=== PATIENT | female | born 1975 | race Caucasian/White ===

== ENCOUNTER → 2018-02-27 08:30 | Outpatient (CLI) | payer OTHER, SELFPAY ==
[2018-02-27 09:12] LABS: Absolute Lymphocyte Count 2.03 X10^3/ul (0.83-4.51); Absolute Neutrophil Count 2.7 X10^3/uL (2.0-7.7); Basophil# 0.03 X10^3/uL; Basophil% 0.5 % (0-1); Eosinophils% 3.4 % (0-5); Hematocrit 39.8 % (37-47); Hemoglobin 12.4 g/dl (12.0-15.0); Lymphocyte # 2.03 X10^3/ul (4.0); Lymphocyte % 34.8 % (19-41); Mean Corp Hgb Conc 31.2 g/gl (32-36); Mean Corpuscular Hgb 25.9 pg (27.0-32.0); Mean Corpuscular Volume 83.1 fL (81-99); Mean Platelet Vol. 10.8 fl (6.2-12.0); Monocyte# 0.84 X10^3/uL; Monocyte% 14.4 % (0-10); Neutrophil # 2.73 X10^3/uL (2.7-7.7); Neutrophil % 46.7 % (47-70); Platelet Count 253 K/mm3 (150-450); RBC Distribution Width CV 15.9 % (11.6-14.6); RBC Distribution Width SD 47.3 fl (35.1-43.9); Red Blood Count 4.79 M/mm3 (4.2-5.4); White Blood Count 5.8 K/mm3 (4.4-11.0)
[2018-02-27 09:14] LABS: POSITIVE COUNT NO; POSITIVE DIFFERENTIAL NO; POSITIVE MORPHOLOGY NO
[2018-02-27 09:37] LABS: ALB/GLOB Ratio 1.1 RATIO (0.9-2.4); AST(SGOT) 13 U/L (15-37); Alanine Aminotransfer ALT/SGPT 15 U/L (13-56); Alkaline Phosphatase 65 U/L (45-117); Anion Gap 6 (5-15); BUN 12 mg/dL (7-18); BUN/Creat Ratio 11.8 RATIO (10-20); Calcium,Total 9.4 mg/dL (8.5-10.1); Chloride 106 mmol/L (98-107); Cholesterol 165 mg/dL (200); Creatinine, Serum 1.02 mg/dL (0.55-1.02); EST Glomerular Filtration Rate 63 mL/min (>60); Est Glom Filt Rate - Afr Amer 76 mL/min (>60); Globulin 3.7 g/dL (2.2-4.2); Glucose 90 mg/dL (74-106); High Density Lipoprotein 56 mg/dL; Potassium 3.9 mmol/L (3.5-5.1); Protein, Total 7.7 g/dL (6.4-8.2); Sodium Level 140 mmol/L (136-145); Triglycerides 104 mg/dL; Very Low Density Lipoprotein 21 mg/dL (5-40)
== END ==
PROVIDERS: Family Provider Family Medicine; PCP Family Medicine; Visit Provider Family Medicine
DX: Z00.00 Encounter for general adult medical examination without abnormal findings (principal)
CPT/HCPCS: 36415; 80053; 80061; 85025

== ENCOUNTER → 2019-03-29 16:39 | Outpatient (CLI) | payer OTHER, SELFPAY ==
--- NOTE | 2019-03-29 16:42 | RAD_ITS ---
STUDY: X-RAY - RIGHT KNEE REASON FOR EXAM: Female, 43 years old. Worsening medial knee pain. No history of injury. TECHNIQUE: 4 view(s) of the knee. COMPARISON: None. FINDINGS: Normal visualized distal femur. Normal visualized proximal tibia and fibula. Normal proximal tibiofibular articulation. Normal medial femorotibial compartment. Normal lateral femorotibial compartment. Normal patellofemoral articulation. The soft tissue structures are unremarkable. RAD/Knee 4 or More Views IMPRESSION: Normal x-ray examination of the knee. Electronically Signed: Nav Leyav, at 13:40 EDT , Service support ,
== END ==
PROVIDERS: Family Provider Family Medicine; PCP Family Medicine; Referring Provider Family Medicine; Visit Provider Family Medicine
DX: M25.561 Pain in right knee (principal)
CPT/HCPCS: 73564

== ENCOUNTER → 2019-04-20 16:14 | Outpatient (CLI) | payer OTHER, SELFPAY ==
--- NOTE | 2019-04-20 16:45 | MRI_ITS ---
STUDY: MRI RIGHT KNEE REASON FOR EXAM: Female, 43 years old. Chronic medial knee pain. TECHNIQUE: Standardized fat and water weighted pulse sequences were obtained in all 3 orthogonal planes. COMPARISON: X-ray 03/29/2019. FINDINGS: 6 cm complex tear of the posterior body of the medial meniscus extending to the superior and inferior articular surfaces. Normal hyaline cartilage of the medial femorotibial compartment. Normal medial femoral condyle and tibial plateau. Normal medial collateral ligamentous complex (MCL). Normal distal semimembranosus, gracilis and semitendinosus tendons. Normal lateral meniscus. Normal hyaline cartilage of the lateral femorotibial compartment. Normal lateral femoral condyle and tibial plateau. Normal proximal tibiofibular articulation. Normal lateral collateral (fibular) ligament. Normal popliteus tendon. Normal biceps femoris tendon. Trace edema in the distal anterior cruciate ligament, suspicious for sprain. There is no high-grade tear. Normal posterior cruciate ligament (PCL). Normal congruent patellofemoral articulation. Normal hyaline cartilage of the patellofemoral compartment. Normal medial and lateral patellar retinaculum. Normal quadriceps tendon. Normal patellar tendon. Normal Hoffa's fat pad. Small joint effusion with gastrocnemius-semimembranosus bursal prolapse. The soft tissues are unremarkable. The otherwise visualized osseous structures are unremarkable. MRI/Lower Ext Joint Only (Routine) IMPRESSION: 1. Medial meniscal tear. 2. ACL sprain. 3. Small joint effusion. Electronically Signed: Malia Valera MD at 18:12 EDT Tel , Service support ,
== END ==
PROVIDERS: Family Provider Family Medicine; PCP Family Medicine; Referring Provider Family Medicine; Visit Provider Family Medicine
DX: M25.561 Pain in right knee (principal)
CPT/HCPCS: 73721

== ENCOUNTER 2019-05-23 10:14 | Day surgery (SDC) | payer OTHER, SELFPAY ==
--- NOTE | 2019-05-03 03:19 | HP_ITS ---
I have re-examined the patient. There are no clinical changes since date of exam. Intake Vital Signs 05/03/19 Height 5 ft 4 in 05/03/19 Weight: 157 lb 05/03/19 Body Mass Index (BMI) 26.9 Intake Visit Reasons: R. KNEE Is patient in pain?: Yes Pain scale (1-10): 4 Allergies No Known Allergies Allergy (Unverified 05/03/19 13:37) Medications acetaminophen 325 mg capsule 325 mg PO Q6H 05/03/19 [History Confirmed 05/03/19] HPI R. KNEE : Surgical H&P: Yes Details: Parts of this documentation were recorded by a scribe, this documentation accurately reflects the service provided and the decisions made by me, Natalie Catalan, DO 05/03/19 0792. HAIDER GILLILAND is a 43 year old F here today new patient for right knee pain. She states that she has had right knee pain for about 2 years. She states that she was moving boxes and her knee was sore following the event but she denies any known injury. She has pain over her medial knee, superior and posterior knee. Patient denies any popping or clicking. She feels like she has knee instability but she has not had any true giving out. Patient has increased pain with ambulation and standing for long periods of time, and lifting heavy items. She states that she has a knee brace which she wears daily. Patient notes that she had an injection about a year ago which was not helpful. She had swelling following her injection and she had shooting nerve pain into her thigh. Patient has taken an anti-inflammatory and has not had any relief. She denies any physical therapy. Patient had an MRI and xray which was helpful. ROS Const Reports system reviewed and no additional complaints, except as docu Eyes Reports system reviewed and no additional complaints, except as docu ENT Reports system reviewed and no additional complaints, except as docu Card Reports system reviewed and no additional complaints, except as docu Resp Reports system reviewed and no additional complaints, except as docu GI Reports system reviewed and no additional complaints, except as docu Reports system reviewed and no additional complaints, except as docu Musc Reports joint pain, Reports joint swelling, Reports stiffness Skin/Breast Reports system reviewed and no additional complaints, except as docu Neuro Yes system reviewed and no additional complaints, except as docu Psych Reports system reviewed and no additional complaints, except as docu Endo Reports system reviewed and no additional complaints, except as docu Ortho Exam Right Knee Homans Sign: No Examination: Yes Med jt line tenderness, No Lat jt line tenderness, Yes Rudy's Test Stability: NML: Posterior Drawer, NML: Valgus 30, NML: Varus 30, 1+: Anterior Drawer, 1+: Francesca Apprehension with Lateral Translation: No Patella Grind: No KNEE: nvi,b/l hamstring weakness No rales rhonchi wheezing, no abdominal pain, no audible bruits Assessment & Plan Plan Personally reviewed patient MRI fo her right knee. Patient educated that her ACL is intact but she does show signs of a partial tear and she does have a medial meniscus tear. Patient educated that her tx options are to do nothing or steroid injections or surgery to repair her meniscus. Reviewed the pre-operative plans with the patient. Risks and benefits of the procedure were fully explained, including but not limited to infection, neurovascular injury, continued pain, arthritis, stiffness, need for further surgery, re-injury, DVT, PE, general risks of anesthesia, and loss of limb or life. The patient understands all the risks and does wish to proceed with written consent. Patient wishes to proceed with right knee arthroscopic surgery for medial meniscus repair vs meniscectomy along with possible ACL repair with cadaver graft. Patient educated that she will more than likely be off work for 2 weeks while she is NWB. Educated that if she wishes to sign surgery consent today it is only good for 30 days. Patient wishes to sign surgery consent today. Surgery date 05/23/19. Follow up 2 weeks post op or sooner if pain, swelling, numbness or associated symptoms, or concerns develop. All questions answered. Patient in agreement of plan. Coding Level of Care Code 85372 05/03/19 1519 <Electronically signed by Natalie babb DO> Date _ Natalie Catalan DO
[2019-05-03 13:41] VITALS: BMI 26.9
[2019-05-17 15:26] LABS: Hematocrit 39.1 % (37-47); Hemoglobin 12.3 g/dL (12.0-15.0); Mean Corp Hgb Conc 31.5 g/dL (32-36); Mean Corpuscular Hgb 27.3 pg (27.0-32.0); Mean Corpuscular Volume 86.7 fL (81-99); Platelet Count 294 K/mm3 (150-450); RBC Distribution Width CV 14.4 % (11.6-14.6); RBC Distribution Width SD 45.6 fl (35.1-43.9); Red Blood Count 4.51 M/mm3 (4.2-5.4)
[2019-05-17 15:34] LABS: International Normalized Ratio 1.1; Partial Thromboplast Time 29.8 Seconds (24.1-36.2); Prothrombin Time (Protime)PT. 13.6 SECONDS (11.7-14.9)
[2019-05-17 15:58] LABS: AST(SGOT) 16 U/L (15-37); Alanine Aminotransfer ALT/SGPT 16 U/L (13-56); Albumin, Serum 3.6 g/dL (3.2-5.0); Alkaline Phosphatase 79 U/L (45-117); Bilirubin, Direct 0.08 mg/dL (0.00-0.30); Globulin 4.1 g/dL (2.2-4.2); Protein, Total 7.7 g/dL (6.4-8.2)
[2019-05-23] VITALS (8 sets, daily range): BP systolic 96–108; BP diastolic 59–73; PULSE 56–85; RESP 16–18; TEMP 36.7–37; O2SAT 79–100; BMI 26.3
[2019-05-23] MEDS: Lactated Ringers 1,000 ML 100 ML IV (11:07)
[2019-05-23 12:05] LABS: Internal QC Validated? YES +Cl - CLEAR BKGD; Pregnancy, Urine Negative Negative
--- NOTE | 2019-05-23 12:57 | CHAPLAIN ---
Type of Pastoral Visit _x__ Initial Visit ___ Follow-up Visit ___ On-call Visit ___ General Patient Visit ___ Spiritual Assessment ___ Family Conference ___ Bereavement ___ Rapid Response ___ Code Blue ___ Other (describe below) Pastoral Care Referral From _x__ Patient ___ Family ___ Nurse ___ Physician ___ Networking Administrator ___ Truck Loader ___ Other (describe below) Sacrament/Intervention _x__ Active listening ___ Anointing ___ Nondenominational ___ Bereavement ___ Communion ___ Juanis exploration ___ ___ Life review _x__ Prayer ___ Reconciliation ___ Sacrament of Sick _x__ Supportive presence ___ Wedding ___ Other (describe below) Pastoral Comments
[2019-05-23] MEDS: Epinephrine (1 mg/ml) 1 MG/ML VIAL (13:22)
[2019-05-23] MEDS: Cefazolin 2 GM in 0.9% Normal Saline 100 ML IV (13:56)
[2019-05-23] MEDS: Mupirocin Ointment 22gm Tube 1 APPLIC (15:00)
--- NOTE | 2019-05-23 15:04 | DCINST_ITS ---
Discharge Diet: No Restrictions - ttwb right leg for 6 weeks, follow up on tuesday with heraclio for dressing change and brace adjustment, ice, ankle pumps, elevate toes above nose, call with concerns, DAVID stockings for 2 weeks, brace locked in extension during ambulation and at night Discharge Activity: May Not Drive May shower in (days): 1 Ice area for (Minutes): 20 - Every hour while awake. Weight Bearing Status: Weight bearing as tolerated Keep extremity elevated above heart level: Operative Extremity Call your doctor if your incision/area has: Continuous Slow Oozing, Sudden Increased Bleeding, Increased Pain/ Swelling, Increased Redness, Foul Smelling Discharge Call your doctor if you observe: Fever of 101 or Higher, Coldness, Increased Pain, Numbness or Tingling, Change in Color, Calf discomfort Allergies/Adverse Reactions: Allergies No Known Allergies Allergy (Unverified 05/23/19 10:38) Medications to take at Discharge acetaminophen 325 mg capsule 325 mg PO Q6H PRN 05/03/19 Ibuprofen 200 mg PO PRN PRN 05/16/19 Primary Care Physician: Mari Christensen [Primary Care Provider] - Test Results: Test results from this visit will be discussed in further detail at your follow- up appointment, if applicable. Please Follow Up With: Natalie Catalan, DO - [phone]
--- NOTE | 2019-05-23 15:05 | OP.PCM_ITS ---
Report of Operation Date of Procedure: 05/23/19 Pre-Operative Diagnosis: right knee oa, med men tear, synovitis, acl sprain Post-Operative Diagnosis: same Surgery/Procedure Performed:: right knee arthroscopy, med meniscectomy, med men repair, extensive synovectomy, pat and mfc chondroplasty, microfx notch director of strategic initiatives: Jayce Luna Type of Anesthesia:: General Anesthesiologist: Duarte Steven Drains: tt-46 mins Estimated Blood Loss (mL): min Fluids Replaced: 800cc Description of Procedure: Preoperative note Patient is a 43-year-old female with continued right knee pain despite conservative treatment MRI confirms medial meniscus tear and ACL sprain. Slight chondromalacia of her patellofemoral as well as the medial joint line thinning of her cartilage. Risk benefits and alternatives were discussed with patient. Risks including but not limited to blood loss, blood clot, infection, neur ovascular, failure procedure, loss of life and loss of limb. Patient is aware would like to proceed with right knee arthroscopy repair as indicated. Operative note Patient seen and examined preoperative holding area. Right knee was marked. Patient brought to the operating room placed supine on the operating table. Signed, anesthesia, antibiotics were administered. The right knee was prepped and draped usual sterile fashion with a tourniquet around her upper thigh. All bony problems well-padded SCDs placed on her contralateral limb. We prepped and draped the right leg after and then placed our anterolateral anteromedial portal placements. The right leg was then elevated exsanguinated tourniquet was raised to pressure 250 torr. We used a 11 blade to create a anterolateral portal. Begin a diagnostic arthroscopy. She had extensive synovitis anterior medial anterior lateral recesses. We created an anterior medial portal under direct visualization. We then were able to resect the anteromedial anteriorly the lateral synovitis with a shaver. We then able to visualize the medial meniscus which was unstable and torn and is a mid body tear between the 2 leaflets of the mid body to the root. The undersurface of leaflet was resected back to stable rim. We then performed placed to same with stitches with a 360 reverse curved FasT-Fix device and hearing the tear to the capsule as well as it was unstable on The capsule as well. Please note prior to this we did rasp the area with a rasp to instill and blood flow and healing. We then resected with a basket and a shaver and the unstable meniscus we then reinserted our probe and after the same stitches were placed we had good stable remnant meniscus remaining remaining. ACL and PCL were present within the notch. The lateral meniscus was present within the notch it was a discoid variant however was stable to probing. She had no previous symptoms on the lateral joint line. She had some fibrillated changes of her lateral tibial plateau and there was a fissure on the lateral tibial plateau on the undersurface of the lateral meniscus. There is some grade 2 fibrillated changes on the lateral femoral condyle as well. On the medial femoral condyle she had a half by half centimeter and condyle grade 2 chondral loss of the medial femoral condyle as well as the medial tibial plateau she had grade 3 changes throughout. No bone exposed. We then shaved back any loose pieces of cartilage on the medial femoral condyle as well as the medial tibial plateau as well as the inferior pole of the patella. We irrigated the knee with copious muscle sterile saline. We performed a microfracture of the notch in order to instill more blood flow to help healing of the medial meniscus. Tourniquet was deflated for a total working time of 46 minutes. Portals were closed with interrupted nylon suture sterile dressings were applied brace was placed on the right leg. Patient tied procedure well no complication transfe rred recovery room in stable condition. Postoperative note Toe-touch weightbearing right leg Follow-up on Tuesday Percocet Call with increased pain numbness tingling or other issues arises Gee disclaimer Gee disclaimer will give pictures to family in 2 weeks
[2019-05-23] MEDS: HYDROcodone Bitartrate/Apap 5/325 Tablet PO (16:46)
== END 2019-05-23 18:47 | disposition home or self-care (01) ==
LOC: SDC 10:14 → AC 10:14
PROVIDERS: Anesthesiology; Family Provider Family Medicine; PCP Family Medicine; Referring Provider Orthopaedic Surgery; Visit Provider Orthopaedic Surgery
PROC: (CPT 29888; principal; 2019-05-23 11:30)
DX: S83.241A Other tear of medial meniscus, current injury, right knee, initial encounter (principal); M17.11 Unilateral primary osteoarthritis, right knee; S83.511A Sprain of anterior cruciate ligament of right knee, initial encounter; M65.9 Synovitis and tenosynovitis, unspecified; X58.XXXA Exposure to other specified factors, initial encounter; Y93.9 Activity, unspecified; Y92.9 Unspecified place or not applicable
CPT/HCPCS: 29876; 29879; 29881; 36415; 80076; 81025; 85027; 85610; 85730; J7120; J2405

== ENCOUNTER 2019-08-24 12:00 | Outpatient (RCR) | payer OTHER, SELFPAY ==
[2019-06-05 09:54] VITALS: BMI 26.3
--- NOTE | 2019-06-13 10:00 | HP.PTEVAL ---
Patient's Visit Information HAIDER GILLILAND is a 43 year old F referred to Physical Therapy by Natalie Catalan DO with a diagnosis of R Med Meniscus Repair. Date of Evaluation: 06/13/19 Physical Therapist: Carmelita Cantu DPT - Visit Plan Frequency: 2x /Week Duration: 4 Weeks Plan: Focus on improving knee ROM/strengthening, gait training, and improving WB'ing tolerance. - Subjective Findings: Right Medial Meniscal Repair 05-23-[address] Catalan- hurt it moving boxes a few years ago. NWB currently- for about 3 more weeks. She has no pain in the knee and is sleeping normally. Is not driving- but has family support. Is back to work- IS at [employer]- on axillary crutches and is keeping her NWB status. 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 Brace is unlocked to 70 degrees and is able to unlock to 90 degrees at 06/20/19. PMHx/Meds: no changes since surgery. - Objective Posture: fair t/o. Gait: amb. w/ B crutches & T-Scope Brace on R. NWB'ing at this time. ROM: Ankle WFL Knee 0-70 (brace locked to 70). Strength: Ankle 5/5 Knee: SLR good no lag. Core: fair. Girth: 6 in. above knee R 54 cm L 54.5 cm - Goals Goal 1:: Pt. will be I w/ HEP & progression Goal Time Frame: 4-6 Weeks Goal 2:: Pt. will demo 130 degrees of R knee flexion as allowed by MD Goal Time Frame: 4-6 Weeks Goal 3:: Pt. will amb. >300 ft w/ normalized gait pattern & no AD Goal Time Frame: 4-6 Weeks Goal 4:: Patient will return to all normal ADL's and recreational activities. Goal Time Frame: 6-8 Weeks - Rehabilitation Potential Physical Therapy Diagnosis: s/p presents w/ decreased ROM, LE weakness, and impaired WB'ing tolerance which leads to difficulty performing ADL's. Rehabilitation Potential: Good - Anticipated Interventions Patient/Client Instruction: Educate patient on: Condition For the Purpose of:: To decrease pain Therapeutic Exercise to Include: Strength training, Endurance training, Balance training, Flexibilty training, Gait and locomotor training, Passive ROM, Active ROM, Dynamic Lumbar Stabilization For the Purpose of:: To improve muscle performance and motor function Functional Training to Include: Gait training For the Purpose of:: To improve muscle performance and motor function Cryotherapy (ice pack, ice massage): Yes Thermo therapy (hot pack): Yes For the Purpose of:: To improve muscle performance and motor function Thank you for the opportunity to evaluate your patient. For Medicare and Medicare HMO plans, please review the plan of care and approve it. It will need to be FAXED BACK to us at [phone] for Medicare purposes. For Medicare only, by signing this I certify the plan of care. Please let me know if there are questions or concerns regarding this plan of care. Physician Signature: Date:
--- NOTE | 2019-08-24 12:31 | HP.PTDCSUM ---
HP - PT D/C Summary It has been my pleasure to treat HAIDER GILLILAND under orders from Natalie Catalan DO, for the diagnosis of R Med Meniscus Repair for a total of 15 visit(s). Discharge Date: Please see the following information for a summary of their discharge status. - Subjective Subjective: Patient reports that she was really painful after last session. Patient feels that she is fully functional. She can do recip stairs- carry a laundry basket. Aches after therapy and soreness when she walks at the [place]. Feels that she is 80% better- not back to full workouts. - Pain Right Knee Pain Intensity (Out of 10): 0 - Overall Improvement % Improvement: 80 - Objective Objective/Function: Posture: good throughout. Gait: no deviation noted in LE. Strength: 5/5 throughout LE. ROM: 0-135. Girth: Left: 55.5 cm Right: 55 cm - Goals Goal 1:: Pt. will be I w/ HEP & progression Goal Progress: Goal Met Goal 2:: Pt. will demo 130 degrees of R knee flexion as allowed by MD Goal Progress: Goal Met Goal 3:: Pt. will amb. >300 ft w/ normalized gait pattern & no AD Goal Progress: Goal Met Goal 4:: Patient will return to all normal ADL's and recreational activities. Goal Progress: Goal Met - Plan Plan: Discharge to I HEP- pt is doing great and will continue HEP - D/C Information If there are questions or concerns regarding this patient's physical therapy, please feel free to call me at [phone]. Thank you for the referral of this patient. Sincerely, Carmelita Cantu DPT
== END 2019-08-24 14:07 | disposition home or self-care (01) ==
LOC: PT 12:00
PROVIDERS: Family Provider Family Medicine; PCP Family Medicine; Referring Provider Orthopaedic Surgery; Visit Provider Orthopaedic Surgery
DX: Z98.890 Other specified postprocedural states (principal)
CPT/HCPCS: 97110; 97161; 97164

== ENCOUNTER → 2020-12-03 16:23 | Outpatient (CLI) | payer OTHER, SELFPAY ==
[2019-09-26 15:01] VITALS: BMI 26.3
--- NOTE | 2020-12-03 16:26 | RAD_ITS ---
STUDY: X-RAY - LEFT KNEE REASON FOR EXAM: Female, 45 years old. PAIN TECHNIQUE: 4 view(s) of the knee. COMPARISON: None. FINDINGS: Normal visualized distal femur. Normal visualized proximal tibia and fibula. Normal proximal tibiofibular articulation. Normal medial femorotibial compartment. Normal lateral femorotibial compartment. Normal patellofemoral articulation. Small joint effusion. RAD/Knee 4 or More Views IMPRESSION: Small joint effusion. Electronically Signed: Nav Leyva MD at 8:48 EDT , Service support ,
== END ==
PROVIDERS: PCP Family Medicine; Referring Provider Family Medicine; Visit Provider Family Medicine
DX: M25.562 Pain in left knee (principal)
CPT/HCPCS: 73564

== ENCOUNTER 2023-02-15 05:17 | Day surgery (SDC) | payer OTHER, SELFPAY ==
[2023-02-15] VITALS (12 sets, daily range): BP systolic 92–124; BP diastolic 59–83; PULSE 62–80; RESP 16–18; TEMP 36.8–36.9; O2SAT 98–100; BMI 24.9
--- NOTE | 2023-02-15 06:06 | PCM.HP.STD ---
[facility] - General General Date of Service: 02/15/23 Chief Complaint: Screening for intestinal cancer [facility] Narrative HAIDER GILLILAND, is a 47 F who presents for screening colonoscopy. She has never had a previous one. She enjoys excellent health. She is not on any routine medications. No bright red blood per rectum or melena. Her grandfather had colon cancer. PFSH Medical History Breast fibroadenoma COVID-19 Easy bruising Heartburn Low iron Migraine headache Non-smoker Home Medications acetaminophen 325 mg capsule (Tylenol) 325 mg PO Q6H PRN Pain Score 1-05/3105/03/19 [History Last Taken Unknown] ibuprofen 200 mg tablet 200 mg PO PRN PRN Pain Score 1-05/3105/16/19 [History Last Taken Unknown] Allergy/AdvReac Type Severity Reaction Status Date / Time cefadroxil Allergy Hives Verified 02/15/23 05:58 Family History (Updated 12/07/22 @ 16:28 by Jerri Calderon) Grandfather Colon cancer Surgical History (Updated 02/11/23 @ 11:33 by Allegra Bartholomew) History of right knee surgery History of tonsillectomy Social History (Updated 12/07/22 @ 16:28 by Jerri Calderon) household members: spouse current occupational status: employed Smoking Status: Never smoker ROS Constitutional Constitutional: Reports systems reviewed and no addt'l complaints, except as documented Cardiovascular Cardiovascular: Denies chest pain Respiratory/Chest Respiratory/Chest: Denies shortness of breath at rest Gastrointestinal Gastrointestinal: Denies abdominal pain, change in bowel habits, hematochezia or melena Vital Signs Vital Signs Vital Signs: 02/15/23 06:01 02/15/23 06:03 Temperature 98.4 F Temperature Source Temporal Pulse Rate 74 Respiratory Rate 16 Respiratory Pattern Normal Blood Pressure 112/69 Blood Pressure Mean 83 Blood Pressure Source Monitor Blood Pressure Position Semi-Fowlers Blood Pressure Location Left Arm Pulse Ox 100 Oxygen Delivery Method Room Air Weight Weight: 145 lb Body Mass Index (BMI) 24.9 Physical Exam Const alert, oriented x3 and no apparent distress General Appearance: cooperative and comfortable Eyes General Eye: normal appearance of both eyes Neck General: normal visual inspection Chest inspection of chest normal Resp Effort and Inspection: able to speak in complete sentences and symmetric chest movement Auscultation: clear to auscultation bilaterally Cardio regular rate and regular rhythm GI soft to palpation, non-tender and non-distended Extremity no calf tenderness Neuro oriented x3 Psych thought process normal Assessment & Plan Assessment/Plan (1) Encounter for screening for malignant neoplasm of colon: PLAN: The patient presents via open access today. I recommend to her screening colonoscopy with possible biopsy or polypectomy as indicated. She is aware of the technique, benefit, risk, alternatives. She has had an opportunity to ask and have questions answered. We will proceed as noted. Rory Alas M.D., F.A.C.S.
[2023-02-15] MEDS: Lactated Ringers 1,000 ML 15 ML IV (06:10)
[2023-02-15 06:14] LABS: Internal QC Validated? YES +Cl - CLEAR BKGD; Pregnancy, Urine Negative Negative
[2023-02-15] MEDS: Midazolam 5 MG/ML Syringe (06:31)
[2023-02-15] MEDS: DiphenhydrAMINE 50 MG/ML Syringe (06:37)
--- NOTE | 2023-02-15 06:51 | OP.COLON_ITS ---
Patient Name: Grace Diaz Procedure Date: 02/15/2023 6:23 AM Date of : 1975 Age: 47 Procedure: Colonoscopy Indications: Screening for colorectal malignant neoplasm Providers: Rory Alas MD Referring MD: Rory Alas MD Medicines: Midazolam 4 mg IV, Meperidine 100 mg IV, Diphenhydramine 12.5 mg IV Patient Profile: Last Colonoscopy: none. The patient's first colonoscopy is today. Complications: No immediate complications. Procedure: Pre-Anesthesia Assessment: - Prior to the procedure, a History and Physical was performed, and patient medications and allergies were reviewed. The patient's tolerance of previous anesthesia was also reviewed. The risks and benefits of the procedure and the sedation options and risks were discussed with the patient. All questions were answered, and informed consent was obtained. Prior Anticoagulants: The patient has taken no previous anticoagulant or antiplatelet agents. ASA Grade Assessment: I - A normal, healthy patient. After reviewing the risks and benefits, the patient was deemed in satisfactory condition to undergo the procedure. After I obtained informed consent, the scope was passed under direct vision. Throughout the procedure, the patient's blood pressure, pulse, and oxygen saturations were monitored continuously. The colonoscope was introduced through the anus and advanced to the cecum, identified by appendiceal orifice and ileocecal valve. The colonoscopy was performed without difficulty. The patient tolerated the procedure well. The quality of the bowel preparation was good. The ileocecal valve and the appendiceal orifice were photographed. Moderate Sedation: Moderate (conscious) sedation was personally administered by the endoscopist. The following parameters were monitored: oxygen saturation, heart rate, blood pressure, and response to care. Total physician intraservice time was 15 minutes. Scope In: 6:36:03 AM Scope Withdrawal Time 0 hours 7 minutes 48 seconds Scope Out: 6:46:56 AM Total Procedure Duration Time 0 hours 10 minutes 53 seconds Findings: The perianal and digital rectal examinations were normal. The colon (entire examined portion) appeared normal. Impression: - The entire examined colon is normal. - No specimens collected. Recommendation: - Discharge patient to home. - Resume previous diet. - Continue present medications. - Repeat colonoscopy in 10 years for screening purposes. Procedure Code(s): --- Professional --- 03647, Colonoscopy, flexible; diagnostic, including collection of specimen(s) by brushing or washing, when performed (separate procedure) 56214, 59, Moderate sedation services provided by the same physician or other qualified health intensive care unit registered nurse performing the diagnostic or therapeutic service that the sedation supports, requiring the presence of an independent trained observer to assist in the monitoring of the patient's level of consciousness and physiological status; initial 15 minutes of intraservice time, patient age 5 years or older Diagnosis Code(s): --- Professional --- Z12.11, Encounter for screening for malignant neoplasm of colon CPT copyright 2017 [employer]. All rights reserved. The codes documented in this report are preliminary and upon cafeteria food server review may be revised to meet current compliance requirements. Rory Alas MD 02/15/2023 6:50:33 AM This report has been signed electronically. Number of Addenda: 0 Note Initiated On: 02/15/2023 6:23 AM
--- NOTE | 2023-02-15 06:51 | OP.CCLET_ITS ---
02/15/2023 Mari Christensen [address] [place] [address] Re : Colonoscopy procedure for Grace Diaz Dear Dr. Christensen This procedure was performed on Wednesday, February 15, 2023. My impressions and recommendations are as follows: Impressions : - The entire examined colon is normal. - No specimens collected. Recommendations : - Discharge patient to home. - Resume previous diet. - Continue present medications. - Repeat colonoscopy in 10 years for screening purposes. My findings are described in the full procedure note, which is enclosed. If I can be of further assistance, please feel free to contact me at Doctor phone number(s): Work: . Sincerely, Rory Alas MD 02/15/2023 6:50:33 AM This report has been signed electronically.
== END 2023-02-15 07:47 | disposition home or self-care (01) ==
LOC: EN 05:17 → AC 05:19
PROVIDERS: PCP Family Medicine; Referring Provider Family Medicine; Visit Provider Surgery
PROC: 0DJD8ZZ Inspection of Lower Intestinal Tract, Via Natural or Artificial Opening Endoscopic (ICD-10-PCS; CPT 45378; principal; 2023-02-15 06:25)
DX: Z12.11 Encounter for screening for malignant neoplasm of colon (principal); Z80.0 Family history of malignant neoplasm of digestive organs; Z86.16 Personal history of COVID-19
CPT/HCPCS: 45378; 81025; 99152; 99153; J7120

== ENCOUNTER → 2024-06-29 | Outpatient (CLI) | payer OTHER, SELFPAY | END | disposition home or self-care (01) | PROVIDERS: PCP Family Medicine; Referring Provider Nurse Practitioner Family; Visit Provider Nurse Practitioner Family | DX: M25.562 Pain in left knee (principal) | CPT/HCPCS: 73564 ==

== ENCOUNTER → 2025-05-31 | Outpatient (CLI) | payer OTHER, SELFPAY ==
[2025-05-31 12:29] LABS: Hematocrit 32.1 % (37-47); Hemoglobin 9.7 g/dL (12.0-15.0); Immature Granulocytes Count 0.010 X10^3/uL (0.0-0.0); Mean Corp Hgb Conc 30.2 g/dL (32-36); Mean Corpuscular Volume 76.1 fL (81-99); Mean Platelet Vol. 10.0 fl (6.2-12.0); NRBC Flagged by Analyzer 0 % (0-5); Platelet Count 357 K/mm3 (150-450); RBC Distribution Width CV 17.0 % (11.6-14.6); RBC Distribution Width SD 46.6 fl (35.1-43.9); Red Blood Count 4.22 M/mm3 (4.2-5.4); White Blood Count 6.0 K/mm3 (4.4-11.0)
[2025-05-31 12:35] LABS: AST(SGOT) 20 U/L (<=31); Alanine Aminotransfer ALT/SGPT 13 U/L (<=34); Albumin, Serum 4.3 g/dL (3.5-5.0); Alkaline Phosphatase 67 U/L (35-104); Anion Gap 10 (5-15); BUN 10 mg/dL (4-19); BUN/Creat Ratio 9.5 RATIO (10-20); Calcium,Total 10.2 mg/dL (7.6-11.0); Carbon Dioxide 24.8 mmol/L (21.0-32.0); Chloride 106 mmol/L (98-108); Cholesterol 208 mg/dL (<=200); Globulin 3.0 g/dL (2.2-4.2); Glucose 94 mg/dL (70-99); Low Density Lipoprotein Calc. 128 mg/dL; Potassium 4.1 mmol/L (3.3-5.1); Triglycerides 115 mg/dL; Very Low Density Lipoprotein 23 mg/dL (5-40); cholesterol:hdl ratio screen 3.62
[2025-05-31 15:01] LABS: Ferritin 11 ng/mL (22-378); Iron 22 ug/dL (50-170); Vitamin B12 243 pg/mL (180-914)
== END | disposition home or self-care (01) ==
LOC: MTLAB 09:03
PROVIDERS: PCP Family Medicine; Referring Provider Family Medicine; Visit Provider Family Medicine
DX: Z00.00 Encounter for general adult medical examination without abnormal findings (principal); D50.9 Iron deficiency anemia, unspecified; E53.8 Deficiency of other specified B group vitamins; Z51.81 Encounter for therapeutic drug level monitoring; Z13.220 Encounter for screening for lipoid disorders
CPT/HCPCS: 36415; 80053; 80061; 82607; 82728; 83540; 85025

== ENCOUNTER → 2025-07-29 | Outpatient (CLI) | payer OTHER, SELFPAY ==
[2025-07-29 15:31] LABS: Hematocrit 42.8 % (37-47); Hemoglobin 13.3 g/dL (12.0-15.0); Immature Granulocytes Count 0.050 X10^3/uL (0.0-0.0); Mean Corp Hgb Conc 31.1 g/dL (32-36); Mean Corpuscular Volume 87.0 fL (81-99); Mean Platelet Vol. 10.8 fl (6.2-12.0); NRBC Flagged by Analyzer 0 % (0-5); POSITIVE MORPHOLOGY YES; Platelet Count 276 K/mm3 (150-450); RBC Distribution Width CV 21.4 % (11.6-14.6); RBC Distribution Width SD 66.4 fl (35.1-43.9); Red Blood Count 4.92 M/mm3 (4.2-5.4); White Blood Count 10.5 K/mm3 (4.4-11.0)
[2025-07-29 15:47] LABS: Differential Indicated SCAN CRITERIA MET
[2025-07-29 16:56] LABS: Ferritin 42 ng/mL (22-378); Iron 41 ug/dL (50-170); Vitamin B12 770 pg/mL (180-914)
[2025-07-29 19:15] LABS: Differential Comment SCANNED
[2025-07-29 19:16] LABS: Anisocytosis 1+; Polychromasia 1+
== END | disposition home or self-care (01) ==
LOC: LAB.FUTURE 15:02 → LAB 07-30 06:26
PROVIDERS: PCP Family Medicine; Referring Provider Family Medicine; Visit Provider Family Medicine
DX: D50.9 Iron deficiency anemia, unspecified (principal); E53.8 Deficiency of other specified B group vitamins
CPT/HCPCS: 36415; 82607; 82728; 83540; 85025